=== PATIENT | male | born 1945 | race Caucasian/White ===

== ENCOUNTER 2017-05-24 12:46 | Inpatient (IN) | payer MEDICARE, OTHER ==
[~2017-05-24] VITALS: Ht 162.6 cm; Wt 61.2 kg
[~2017-05-24 12:46] MED LIST: AMLO10TA80 PO; ASPI-864 PO; SEVE800T8 PO; SITA50TA3 PO
[2017-05-24] MEDS ORDERED: SODIUM CHLORIDE 0.9% 1,000 ML IV ONE (16:15)
[2017-05-24] MEDS ORDERED: MORPHINE SULFATE 4 MG/ML CPJ (NOT FOR IM USE) IV PRN ×2 (16:30→20:30)
[2017-05-24] MEDS ORDERED: ONDANSETRON 4MG ODT PO PRN (16:30)
[2017-05-24 16:39] LABS: HEMATOCRIT. 22.8 % (42.0-52.0); HEMOGLOBIN. 7.9 g/dL (14.0-18.0); MEAN CORPUSCULAR HEMOGLOBIN 31.6 pg (28.0-32.0); PLATELET 159 x1000/uL (130-400); RED CELL DISTRIBUTION WIDTH 15.1 % (11.6-14.6)
[2017-05-24 16:43] LABS: PROTHROMBIN TIME 10.9 sec (9.4-11.6)
[2017-05-24 16:50] LABS: CARBON DIOXIDE 26 mEq/L (21-32); CHLORIDE 99 mEq/L (98-107)
[2017-05-24 16:59] LABS: PLATELET ESTIMATE NORMAL
[2017-05-24 20:00] VITALS: BP 169/73
[2017-05-24 21:30] VITALS: BP 169/72
[2017-05-24] MEDS ORDERED: DEXTROSE 50% WATER 50ML SYRINGE IV PRN (23:00)
[2017-05-24] MEDS ORDERED: CLONIDINE 0.1MG TABLET PO PRN (23:00)
[2017-05-24] MEDS ORDERED: ONDANSETRON HCL 4MG/2ML VIAL IV PRN (23:00)
[2017-05-24] MEDS ORDERED: HYDROCODONE/ACETAMINOPHEN 5/325MG TABLET PO PRN (23:12)
[2017-05-24] MEDS: MORPHINE SULFATE 4 MG/ML CPJ (NOT FOR IM USE) IV PRN (23:41)
[2017-05-25] VITALS (9 sets, daily range): BP systolic 130–171; BP diastolic 64–89
[2017-05-25 06:32] LABS: PROTHROMBIN TIME 10.9 sec (9.4-11.6)
[2017-05-25] MEDS: BLOOD SUGAR DIAGNOSTIC STRIP TEST SCH ×4 (07:20→21:00)
[2017-05-25 07:48] LABS: BASOPHILS % 0.4 % (0.0-2.0); EOSINOPHILS % 1.4 % (0.0-5.0); HEMATOCRIT. 22.2 % (42.0-52.0); HEMOGLOBIN. 7.6 g/dL (14.0-18.0); LYMPHOCYTES % 14.4 % (20.0-50.0); MEAN CORPUSCULAR HEMOGLOBIN 31.4 pg (28.0-32.0); MEAN CORPUSCULAR VOLUME 91.5 fL (80.0-94.0); MEAN PLATELET VOLUME 8.8 fl (7.4-10.4); MONOCYTES % 9.2 % (2.0-8.0); NEUTROPHILS % 74.6 % (40.0-76.0); PLATELET 164 x1000/uL (130-400); RED BLOOD CELL COUNT 2.43 mill/uL (4.7-6.1); RED CELL DISTRIBUTION WIDTH 15.2 % (11.6-14.6)
[2017-05-25] MEDS: INSULIN LISPRO 100 UNITS/ML SUBCUT SCH ×4 (07:50→21:00)
[2017-05-25] MEDS: AMLODIPINE 10MG TABLET PO SCH (09:00)
[2017-05-25] MEDS: FOLIC ACID/VITAMIN B COMP W-C TABLET PO SCH (09:00)
[2017-05-25 09:13] LABS: CARBON DIOXIDE 26 mEq/L (21-32); CHLORIDE 101 mEq/L (98-107); HDL CHOLESTEROL 50 mg/dL (40-59); LDL CHOLESTEROL 60 mg/dL (5-100)
[2017-05-25] MEDS: LISINOPRIL 10MG TABLET PO SCH (09:15)
[2017-05-25] MEDS: SEVELAMER CARBONATE 800 MG TABLET PO SCH ×2 (14:16→17:30)
[2017-05-25] MEDS: ATORVASTATIN CALCIUM 20MG TABLET PO SCH (22:30)
[2017-05-26] VITALS: BP 149/67
[2017-05-26 06:19] LABS: BASOPHILS % 0.2 % (0.0-2.0); EOSINOPHILS % 1.1 % (0.0-5.0); HEMATOCRIT. 24.8 % (42.0-52.0); HEMOGLOBIN. 8.5 g/dL (14.0-18.0); LYMPHOCYTES % 7.5 % (20.0-50.0); MEAN CORPUSCULAR HEMOGLOBIN 30.5 pg (28.0-32.0); MEAN CORPUSCULAR VOLUME 89.2 fL (80.0-94.0); MEAN PLATELET VOLUME 8.4 fl (7.4-10.4); MONOCYTES % 7.8 % (2.0-8.0); NEUTROPHILS % 83.4 % (40.0-76.0); PLATELET 167 x1000/uL (130-400); RED BLOOD CELL COUNT 2.77 mill/uL (4.7-6.1); RED CELL DISTRIBUTION WIDTH 16.1 % (11.6-14.6)
[2017-05-26] MEDS: LEVOTHYROXINE SODIUM 50MCG TABLET PO SCH (06:53)
[2017-05-26] MEDS: BLOOD SUGAR DIAGNOSTIC STRIP TEST SCH ×4 (06:53→21:00)
[2017-05-26 07:08] LABS: PHOSPHORUS 3.2 mg/dL (2.5-4.9)
[2017-05-26] MEDS: INSULIN LISPRO 100 UNITS/ML SUBCUT SCH ×4 (07:50→21:00)
[2017-05-26 08:00] VITALS: BP 170/78
[2017-05-26] MEDS ORDERED: SODIUM POLYSTYRENE SULFONATE 15 G/60 ML BOT PO NR (08:30)
[2017-05-26] MEDS: FOLIC ACID/VITAMIN B COMP W-C TABLET PO SCH (09:48)
[2017-05-26] MEDS: AMLODIPINE 10MG TABLET PO SCH (09:49)
[2017-05-26] MEDS: CARVEDILOL 3.125 MG TABLET PO SCH ×2 (09:49→20:46)
[2017-05-26] MEDS: LISINOPRIL 10MG TABLET PO SCH (09:50)
[2017-05-26 11:44] LABS: T4 FREE 1.28 ng/dL (0.76-1.46)
[2017-05-26] MEDS: ENOXAPARIN 30MG/0.3ML SYR SUBCUT SCH (11:46)
[2017-05-26 12:00] VITALS: BP 164/79
[2017-05-26 16:00] VITALS: BP 147/65
[2017-05-26 16:26] LABS: CREATINE KINASE MB FRACTION 1.6 ng/mL (0.5-3.6)
[2017-05-26 16:38] LABS: TROPONIN I 0.61 ng/mL (0.00-0.04)
[2017-05-26 20:00] VITALS: BP 139/69
[2017-05-26] MEDS: ATORVASTATIN CALCIUM 20MG TABLET PO SCH (20:45)
[2017-05-26 23:53] LABS: CREATINE KINASE MB FRACTION 1.3 ng/mL (0.5-3.6)
[2017-05-27] VITALS: BP 139/71
[2017-05-27 00:45] LABS: TROPONIN I 0.66 ng/mL (0.00-0.04)
[2017-05-27 04:00] VITALS: BP 142/73
[2017-05-27 06:05] LABS: BASOPHILS % 0.3 % (0.0-2.0); EOSINOPHILS % 3.7 % (0.0-5.0); HEMATOCRIT. 23.9 % (42.0-52.0); HEMOGLOBIN. 8.3 g/dL (14.0-18.0); LYMPHOCYTES % 8.7 % (20.0-50.0); MEAN CORPUSCULAR HEMOGLOBIN 31.2 pg (28.0-32.0); MEAN CORPUSCULAR VOLUME 89.5 fL (80.0-94.0); MEAN PLATELET VOLUME 8.5 fl (7.4-10.4); NEUTROPHILS % 80.3 % (40.0-76.0); PLATELET 190 x1000/uL (130-400); RED BLOOD CELL COUNT 2.67 mill/uL (4.7-6.1); RED CELL DISTRIBUTION WIDTH 15.4 % (11.6-14.6)
[2017-05-27] MEDS ORDERED: BACITRACIN ZINC 15GM TUBE TOP ONE (06:24)
[2017-05-27] MEDS ORDERED: VANCOMYCIN HCL 500 MG/VIAL ONE (06:24)
[2017-05-27] MEDS ORDERED: NORMAL SALINE 0.9% 10 ML SYR ONE (06:24)
[2017-05-27] MEDS ORDERED: BACITRACIN 50,000 UNITS/VIAL ONE (06:25)
[2017-05-27] MEDS: LEVOTHYROXINE SODIUM 50MCG TABLET PO SCH (06:33)
[2017-05-27] MEDS: BLOOD SUGAR DIAGNOSTIC STRIP TEST SCH ×4 (06:33→21:56)
[2017-05-27 06:55] LABS: CREATINE KINASE MB FRACTION 1.2 ng/mL (0.5-3.6); PHOSPHORUS 3.7 mg/dL (2.5-4.9)
[2017-05-27] MEDS ORDERED: MIDAZOLAM HCL 2 MG/2 ML VIAL ONE (07:06)
[2017-05-27] MEDS ORDERED: FENTANYL CITRATE/PF 50MCG/ML 2ML VIAL ONE (07:06)
[2017-05-27 07:13] LABS: TROPONIN I 0.62 ng/mL (0.00-0.04)
[2017-05-27] MEDS ORDERED: MEPERIDINE HCL/PF 25MG/ML CPJ IV PRN (07:30)
[2017-05-27] MEDS ORDERED: ONDANSETRON HCL 4MG/2ML VIAL IV PRN (07:30)
[2017-05-27] MEDS ORDERED: LABETALOL HCL 5MG/ML VIAL 20ML IV PRN (07:30)
[2017-05-27] MEDS ORDERED: HYDROMORPHONE HCL/PF 2MG/ML CPJ IV PRN (07:30)
[2017-05-27] MEDS: INSULIN LISPRO 100 UNITS/ML SUBCUT SCH ×4 (07:50→22:06)
[2017-05-27] MEDS ORDERED: LIDOCAINE HCL 1% 20ML VIAL (Pyxis) INJ ONE (07:54)
[2017-05-27] MEDS ORDERED: DEXAMETHASONE 4MG/ML 1ML VIAL ONE (07:54)
[2017-05-27] MEDS ORDERED: PROPOFOL 200MG/20ML VIAL IV ONE (07:54)
[2017-05-27] MEDS ORDERED: EPHEDRINE SULFATE 50MG/ML VIAL ONE (07:54)
[2017-05-27] MEDS ORDERED: SODIUM CHLORIDE 0.9% 10ML VIAL ONE (07:54)
[2017-05-27] MEDS ORDERED: NEOSTIGMINE METHYLSULFATE 1MG/ML 10 ML VIAL ONE ×2 (07:54→07:55)
[2017-05-27] MEDS ORDERED: CEFAZOLIN SODIUM 1000MG/VIAL ONE (07:54)
[2017-05-27] MEDS ORDERED: GLYCOPYRROLATE 0.2 MG/ML 2ML VIAL ONE (07:55)
[2017-05-27] MEDS ORDERED: ONDANSETRON HCL 4MG/2ML VIAL ONE (07:55)
[2017-05-27] MEDS: AMLODIPINE 10MG TABLET PO SCH (08:00)
[2017-05-27] MEDS: FOLIC ACID/VITAMIN B COMP W-C TABLET PO SCH (08:00)
[2017-05-27] MEDS ORDERED: CEFAZOLIN 1000MG PREMIX 50 ML IV SCH (08:00)
[2017-05-27] MEDS: CARVEDILOL 3.125 MG TABLET PO SCH ×2 (08:00→20:44)
[2017-05-27] MEDS: ENOXAPARIN 30MG/0.3ML SYR SUBCUT SCH (08:00)
[2017-05-27] MEDS: LISINOPRIL 10MG TABLET PO SCH (08:00)
[2017-05-27 10:00] VITALS: BP 151/67
[2017-05-27 12:00] VITALS: BP 145/64
[2017-05-27 16:00] VITALS: BP 140/67
[2017-05-27 20:00] VITALS: BP 143/59
[2017-05-27] MEDS: ATORVASTATIN CALCIUM 20MG TABLET PO SCH (20:44)
[2017-05-27] MEDS ORDERED: EPOETIN ALFA 10000UNITS/ML VIAL SUBCUT SCH (21:00)
[2017-05-28] VITALS: BP 124/56
[2017-05-28 04:00] VITALS: BP 148/81
[2017-05-28] MEDS: MORPHINE SULFATE 4 MG/ML CPJ (NOT FOR IM USE) IV PRN ×2 (04:31→11:24)
[2017-05-28 06:05] LABS: HEMATOCRIT. 22.7 % (42.0-52.0); HEMOGLOBIN. 7.7 g/dL (14.0-18.0); MEAN CORPUSCULAR HEMOGLOBIN 30.1 pg (28.0-32.0); MEAN CORPUSCULAR VOLUME 88.7 fL (80.0-94.0); MEAN PLATELET VOLUME 8.7 fl (7.4-10.4); PLATELET 216 x1000/uL (130-400); RED BLOOD CELL COUNT 2.56 mill/uL (4.7-6.1); RED CELL DISTRIBUTION WIDTH 15.5 % (11.6-14.6)
[2017-05-28] MEDS: LEVOTHYROXINE SODIUM 50MCG TABLET PO SCH (06:20)
[2017-05-28] MEDS: BLOOD SUGAR DIAGNOSTIC STRIP TEST SCH ×4 (06:27→20:49)
[2017-05-28] MEDS: INSULIN LISPRO 100 UNITS/ML SUBCUT SCH ×4 (07:44→20:51)
[2017-05-28 07:49] LABS: PHOSPHORUS 4.1 mg/dL (2.5-4.9)
[2017-05-28 08:00] VITALS: BP 138/75
[2017-05-28] MEDS ORDERED: CEFAZOLIN 1000MG PREMIX 50 ML IV SCH (08:00)
[2017-05-28] MEDS ORDERED: APIXABAN 5 MG TABLET PO SCH (09:00)
[2017-05-28] MEDS: FOLIC ACID/VITAMIN B COMP W-C TABLET PO SCH (09:13)
[2017-05-28] MEDS: LISINOPRIL 10MG TABLET PO SCH (09:15)
[2017-05-28] MEDS: AMLODIPINE 10MG TABLET PO SCH (09:15)
[2017-05-28] MEDS: CARVEDILOL 3.125 MG TABLET PO SCH ×2 (09:16→20:49)
[2017-05-28] MEDS ORDERED: LINAGLIPTIN 5MG TABLET PO SCH (11:00)
[2017-05-28 12:00] VITALS: BP 144/65
[2017-05-28 16:00] VITALS: BP 140/63
[2017-05-28] MEDS ORDERED: APIXABAN 2.5 MG TABLET PO SCH (17:50)
[2017-05-28 19:51] VITALS: BP 146/69
[2017-05-28 20:38] LABS: PLATELET ESTIMATE NORMAL
[2017-05-28] MEDS: ATORVASTATIN CALCIUM 20MG TABLET PO SCH (20:48)
== END 2017-05-28 21:35 | DRG 480 ==
LOC: ER 14:01 → 6EST 16:30 → ENRESERV 19:02
PROVIDERS: ADMIT Internal Medicine; ATTEND Internal Medicine
PROC: 5A1D70Z Performance of Urinary Filtration, Intermittent, Less than 6 Hours Per Day (ICD-10-PCS; 2017-05-25)
PROC: 5A1D70Z Performance of Urinary Filtration, Intermittent, Less than 6 Hours Per Day (ICD-10-PCS; 2017-05-27)
PROC: 0QS636Z Reposition Right Upper Femur with Intramedullary Internal Fixation Device, Percutaneous Approach (ICD-10-PCS; principal; 2017-05-27 07:00)
DX: S72.141A Displaced intertrochanteric fracture of right femur, initial encounter for closed fracture (principal); N18.6 End stage renal disease; I13.2 Hypertensive heart and chronic kidney disease with heart failure and with stage 5 chronic kidney disease, or end stage renal disease; E11.22 Type 2 diabetes mellitus with diabetic chronic kidney disease; E11.40 Type 2 diabetes mellitus with diabetic neuropathy, unspecified; E83.39 Other disorders of phosphorus metabolism; I42.8 Other cardiomyopathies; E11.319 Type 2 diabetes mellitus with unspecified diabetic retinopathy without macular edema; I50.40 Unspecified combined systolic (congestive) and diastolic (congestive) heart failure; I25.10 Atherosclerotic heart disease of native coronary artery without angina pectoris; D63.8 Anemia in other chronic diseases classified elsewhere; E78.5 Hyperlipidemia, unspecified; E87.5 Hyperkalemia; H54.7 Unspecified visual loss; W01.0XXA Fall on same level from slipping, tripping and stumbling without subsequent striking against object, initial encounter; Z79.4 Long term (current) use of insulin; Z86.73 Personal history of transient ischemic attack (TIA), and cerebral infarction without residual deficits; Z87.891 Personal history of nicotine dependence; Z99.2 Dependence on renal dialysis; Y93.89 Activity, other specified; Y92.89 Other specified places as the place of occurrence of the external cause; Y99.8 Other external cause status
CPT/HCPCS: 36415; 71010; 73502; 73503; 80048; 80053; 80061; 82550; 82553; 82962; 83036; 83735; 83880; 84100; 84439; 84443; 84484; 85025; 85379; 85610; 86850; 86900; 86920; 93005; 93306; 93970; 96361; 96374; 97110; 97163; 97530; 99285; A4216; C1893; J0171; J0690; J0885; J1100; J1650; J1815; J2250; J2270; J2405; J2704; J2710; J3010; J3370; J3490; J7030; J7050; P9021; Q0162

== ENCOUNTER 2018-06-30 14:07 | Inpatient (IN) | payer MEDICARE ==
[~2018-06-30] VITALS: Ht 170.2 cm; Wt 44.5 kg
[2018-06-30 18:12] LABS: BASOPHILS % 0.5 % (0.0-2.0); EOSINOPHILS % 1.6 % (0.0-5.0); HEMATOCRIT. 26.9 % (42.0-52.0); HEMOGLOBIN. 9.1 g/dL (14.0-18.0); LYMPHOCYTES % 14.4 % (20.0-50.0); MEAN CORPUSCULAR HEMOGLOBIN 33.3 pg (28.0-32.0); MEAN CORPUSCULAR VOLUME 98.4 fL (80.0-94.0); MONOCYTES % 8.8 % (2.0-8.0); NEUTROPHILS % 74.7 % (40.0-76.0); PLATELET 185 x1000/uL (130-400); RED BLOOD CELL COUNT 2.74 mill/uL (4.7-6.1); RED CELL DISTRIBUTION WIDTH 14.8 % (11.6-14.6)
[2018-06-30 18:19] LABS: CHLORIDE 100 mEq/L (98-107)
[2018-06-30 18:23] LABS: PROTHROMBIN TIME 9.9 sec (9.1-11.1)
[2018-06-30 18:24] LABS: ETHANOL BLOOD < 10 mg/dL
[2018-06-30 21:15] VITALS: BP 162/68
[2018-06-30] MEDS: AMLODIPINE 10MG TABLET PO SCH (22:24)
[2018-07-01] VITALS: BP 130/59
[2018-07-01 04:00] VITALS: BP 106/47
[2018-07-01 07:28] LABS: HEMATOCRIT. 23.1 % (42.0-52.0); MEAN CORPUSCULAR HEMOGLOBIN 33.8 pg (28.0-32.0); MEAN CORPUSCULAR VOLUME 98.1 fL (80.0-94.0); MEAN PLATELET VOLUME 7.9 fl (7.4-10.4); PLATELET 181 x1000/uL (130-400); RED BLOOD CELL COUNT 2.36 mill/uL (4.7-6.1)
[2018-07-01 08:00] VITALS: BP 143/60
[2018-07-01] MEDS: SEVELAMER CARBONATE 800 MG TABLET PO SCH ×2 (09:02→12:45)
[2018-07-01] MEDS: FOLIC ACID/VITAMIN B COMP W-C TABLET PO SCH (09:02)
[2018-07-01] MEDS ORDERED: ACETAMINOPHEN 325MG TABLET PO PRN (09:45)
[2018-07-01 10:16] LABS: PHOSPHORUS 2.5 mg/dL (2.5-4.9)
[2018-07-01 12:00] VITALS: BP 113/47
[2018-07-01 14:08] LABS: PLATELET ESTIMATE NORMAL
[2018-07-01 16:00] VITALS: BP 143/56
[2018-07-01] MEDS ORDERED: HYDROCODONE/ACETAMINOPHEN 5/325MG TABLET PO PRN (16:00)
[2018-07-01] MEDS ORDERED: ACETAMINOPHEN 650MG/20.3ML UDC PO PRN (16:00)
[2018-07-01] MEDS ORDERED: ACETAMINOPHEN 650MG SUPP PR PRN (16:00)
[2018-07-01] MEDS ORDERED: CLONIDINE 0.1MG TABLET PO PRN (16:00)
[2018-07-01] MEDS ORDERED: DIPHENHYDRAMINE 50MG/ML VIAL IV PRN (16:00)
[2018-07-01] MEDS ORDERED: DOCUSATE SODIUM 100MG CAPSULE PO PRN (16:00)
[2018-07-01] MEDS ORDERED: ONDANSETRON HCL 4MG/2ML INJ IV PRN (16:00)
[2018-07-01] MEDS ORDERED: DEXTROSE 50% WATER 50ML SYRINGE IV PRN (16:15)
[2018-07-01 20:00] VITALS: BP_SYST 109; BP_SYST 138; BP_DIAS 42; BP_DIAS 54
[2018-07-01] MEDS: AMLODIPINE 10MG TABLET PO SCH (21:00)
[2018-07-01] MEDS: BLOOD SUGAR DIAGNOSTIC STRIP TEST SCH (21:45)
[2018-07-01] MEDS: INSULIN LISPRO 100 UNITS/ML SUBCUT SCH (21:45)
[2018-07-02] VITALS: BP 145/48
[2018-07-02 04:00] VITALS: BP 138/45
[2018-07-02] MEDS: BLOOD SUGAR DIAGNOSTIC STRIP TEST SCH ×2 (07:37→12:57)
[2018-07-02] MEDS: INSULIN LISPRO 100 UNITS/ML SUBCUT SCH ×2 (07:37→12:57)
[2018-07-02 08:00] VITALS: BP 244/86
[2018-07-02] MEDS: FOLIC ACID/VITAMIN B COMP W-C TABLET PO SCH (08:48)
[2018-07-02 09:13] LABS: BASOPHILS % 0.4 % (0.0-2.0); EOSINOPHILS % 2.4 % (0.0-5.0); HEMATOCRIT. 27.9 % (42.0-52.0); HEMOGLOBIN. 9.6 g/dL (14.0-18.0); LYMPHOCYTES % 24.2 % (20.0-50.0); MEAN CORPUSCULAR HEMOGLOBIN 33.6 pg (28.0-32.0); MEAN CORPUSCULAR VOLUME 97.5 fL (80.0-94.0); MONOCYTES % 8.8 % (2.0-8.0); NEUTROPHILS % 64.2 % (40.0-76.0); PLATELET 227 x1000/uL (130-400); RED BLOOD CELL COUNT 2.87 mill/uL (4.7-6.1); RED CELL DISTRIBUTION WIDTH 14.5 % (11.6-14.6)
[2018-07-02 10:21] LABS: PHOSPHORUS 3.3 mg/dL (2.5-4.9)
[2018-07-02 12:00] VITALS: BP 106/63
[2018-07-02 16:00] VITALS: BP 101/79
[2018-07-02 20:00] VITALS: BP 126/44
[2018-07-02] MEDS ORDERED: AMLODIPINE 5MG TABLET PO SCH (21:00)
[2018-07-02] MEDS ORDERED: EPOETIN ALFA 4000UNITS/ML VIAL SUBCUT SCH (21:00)
[2018-07-03] VITALS: BP 107/30
[2018-07-03 08:00] VITALS: BP_SYST 113
[2018-07-03] MEDS: FOLIC ACID/VITAMIN B COMP W-C TABLET PO SCH (09:34)
[2018-07-03 13:54] VITALS: BP 140/52
[2018-07-03 14:00] VITALS: BP 140/52
[2018-07-03] MEDS ORDERED: AMLODIPINE 2.5MG TABLET PO SCH (21:00)
== END 2018-07-03 15:14 | disposition home or self-care (01) | DRG 535 ==
LOC: ER 14:26 → 7WST 17:01 → EDBEDREQ 17:09 → EDBEDREQTM 17:09 → ENRESERV 20:08 → 7WST 21:47
PROVIDERS: ADMIT Internal Medicine; ATTEND Internal Medicine
PROC: 5A1D70Z Performance of Urinary Filtration, Intermittent, Less than 6 Hours Per Day (ICD-10-PCS; principal; 2018-07-01)
DX: S32.591A Other specified fracture of right pubis, initial encounter for closed fracture (principal); N18.6 End stage renal disease; I50.43 Acute on chronic combined systolic (congestive) and diastolic (congestive) heart failure; I13.2 Hypertensive heart and chronic kidney disease with heart failure and with stage 5 chronic kidney disease, or end stage renal disease; R10.30 Lower abdominal pain, unspecified; R26.2 Difficulty in walking, not elsewhere classified; E11.22 Type 2 diabetes mellitus with diabetic chronic kidney disease; E11.319 Type 2 diabetes mellitus with unspecified diabetic retinopathy without macular edema; E11.40 Type 2 diabetes mellitus with diabetic neuropathy, unspecified; D64.9 Anemia, unspecified; E83.39 Other disorders of phosphorus metabolism; R26.89 Other abnormalities of gait and mobility; H54.8 Legal blindness, as defined in USA; Z96.649 Presence of unspecified artificial hip joint; W18.30XA Fall on same level, unspecified, initial encounter; Y93.89 Activity, other specified; Y99.8 Other external cause status; Z82.49 Family history of ischemic heart disease and other diseases of the circulatory system; Z83.3 Family history of diabetes mellitus; Z86.73 Personal history of transient ischemic attack (TIA), and cerebral infarction without residual deficits; Z87.81 Personal history of (healed) traumatic fracture; Z99.2 Dependence on renal dialysis; Y92.009 Unspecified place in unspecified non-institutional (private) residence as the place of occurrence of the external cause; Z79.82 Long term (current) use of aspirin; Z79.899 Other long term (current) drug therapy
CPT/HCPCS: 36415; 71045; 72192; 73502; 80048; 82962; 83036; 83540; 83550; 83605; 84100; 84145; 84484; 93005; 93306; 93970; 99291; G0482; J0885; J1815

== ENCOUNTER 2018-09-15 06:53 | Inpatient (IN) | payer MEDICARE ==
[~2018-09-15] VITALS: Ht 157.5 cm; Wt 50.9 kg
[2018-09-15] VITALS (46 sets, daily range): BP systolic 87–189; BP diastolic 47–96
[2018-09-15] MEDS ORDERED: SODIUM CHLORIDE 0.9% 1000ML BAG (SEPSIS BOLUS) IV ONE (07:30)
[2018-09-15] MEDS ORDERED: PIPERACILLIN/TAZ 3.375G PREMIX 50 ML IV ONE (07:45)
[2018-09-15] MEDS ORDERED: VANCOMYCIN 1 G PREMIX 200 ML IV ONE (07:45)
[2018-09-15 08:20] LABS: HEMATOCRIT. 44.4 % (42.0-52.0); HEMOGLOBIN. 14.5 g/dL (14.0-18.0); MEAN CORPUSCULAR HEMOGLOBIN 31.5 pg (28.0-32.0); MEAN CORPUSCULAR VOLUME 96.7 fL (80.0-94.0); MEAN PLATELET VOLUME 7.7 fl (7.4-10.4); PLATELET 193 x1000/uL (130-400); RED BLOOD CELL COUNT 4.59 mill/uL (4.7-6.1); RED CELL DISTRIBUTION WIDTH 15.1 % (11.6-14.6)
[2018-09-15 08:25] LABS: CHLORIDE 93 mEq/L (98-107)
[2018-09-15 08:30] LABS: INR 1.1; PROTHROMBIN TIME 10.7 sec (9.1-11.1)
[2018-09-15] MEDS ORDERED: PROPOFOL 10MG/ML 100ML 100 ML IV ONE (08:45)
[2018-09-15] MEDS ORDERED: SUCCINYLCHOLINE CHLORIDE 200MG/10ML IV ONE ×2 (08:45→13:03)
[2018-09-15] MEDS ORDERED: THROMBIN (BOVINE) 5000 UNITS/VIAL TOP ONE (08:58)
[2018-09-15] MEDS ORDERED: GELATIN SPONGE,ABSORBABLE 12-7MM SPONGE ONE (08:58)
[2018-09-15] MEDS ORDERED: LIDOCAINE HCL/EPINEPHRINE 1%-EPI 1:100,000 20 ML VIAL ONE (08:59)
[2018-09-15] MEDS ORDERED: BACITRACIN 50,000 UNITS/VIAL ONE (08:59)
[2018-09-15 09:04] LABS: PLATELET ESTIMATE NORMAL
[2018-09-15] MEDS ORDERED: SODIUM CHLORIDE 0.9% 10ML VIAL ONE (09:56)
[2018-09-15] MEDS ORDERED: VECURONIUM BROMIDE 10 MG/VIAL IV ONE ×2 (09:56→10:31)
[2018-09-15] MEDS ORDERED: PROPOFOL 200MG/20ML VIAL IV ONE (10:31)
[2018-09-15] MEDS ORDERED: LABETALOL HCL 20MG/4ML CARPUJECT IV PRN (10:45)
[2018-09-15] MEDS ORDERED: MEPERIDINE HCL/PF 25MG/ML CPJ IV PRN (10:45)
[2018-09-15] MEDS ORDERED: ONDANSETRON HCL 4MG/2ML INJ IV PRN (10:45)
[2018-09-15] MEDS ORDERED: HYDROMORPHONE HCL/PF 2MG/ML CPJ IV PRN (10:45)
[2018-09-15] MEDS ORDERED: BACITRACIN 15GM TUBE TOP ONE (10:56)
[2018-09-15] MEDS ORDERED: MORPHINE SULFATE 4 MG/ML CPJ (NOT FOR IM USE) IV PRN (11:15)
[2018-09-15] MEDS ORDERED: FENTANYL CITRATE/PF 50MCG/ML 2ML VIAL ONE (11:28)
[2018-09-15] MEDS: NICARDIPINE 100 MG in SODIUM CHLORIDE 0.9% 60 ML IV PRN (12:06)
[2018-09-15] MEDS: DEXT 5%/LACTATED RINGERS 1,000 ML IV SCH (12:07)
[2018-09-15] MEDS ORDERED: PROPOFOL 10MG/ML 100ML 100 ML IV PRN (12:30)
[2018-09-15 12:47] LABS: BG BASE EXCESS 4.1 mmol/L (-2.0-2.0); BG CARBOXYHEMOGLOBIN 0.6 % (0.5-1.5); BG DEOXYHEMOGLOBIN 0.4 % (0.0-5.0); BG FRACTION INSPIRED OXYGEN 100; BG METHEMOGLOBIN 0.1 % (0.0-1.5); BG OXYGEN SATURATION 99.6 % (92.0-98.5); BG OXYHEMOGLOBIN 98.9 % (94.0-97.0); BG PH 7.542 (7.350-7.450); BG PO2 570.4 mmHg (75.0-100.0); BG SAMPLE SITE RIGHT BRACHIAL; BG TIDAL VOLUME(mL) 500 mL; BG TOTAL HEMOGLOBIN 13.4 g/dL (12.0-18.0); BG VENT MODE VENT - A/C; BG VENT RATE 10 set
[2018-09-15] MEDS ORDERED: ETOMIDATE 2MG/ML 10ML VIAL IV ONE (13:03)
[2018-09-15] MEDS: LEVETIRACETAM 500 MG in SODIUM CHLORIDE 0.9% 100 ML IV SCH ×2 (13:42→21:13)
[2018-09-15] MEDS ORDERED: CEFAZOLIN SODIUM 1000MG/VIAL IV SCH (14:00)
[2018-09-15] MEDS ORDERED: DEXTROSE 50% WATER 50ML SYRINGE IV PRN (14:00)
[2018-09-15] MEDS: PANTOPRAZOLE SODIUM 40 MG/VIAL IV SCH (14:15)
[2018-09-15] MEDS: CEFAZOLIN 1000MG PREMIX 50 ML IV SCH (14:15)
[2018-09-15 15:31] LABS: HEMATOCRIT 37.7 % (42.0-52.0); HEMOGLOBIN 12.5 g/dL (14.0-18.0); MEAN CORPUSCULAR HEMOGLOBIN 31.9 pg (28.0-32.0); MEAN CORPUSCULAR VOLUME 96.2 fL (80.0-94.0); PLATELET 145 x1000/uL (130-400); RED BLOOD CELL COUNT 3.92 mill/uL (4.7-6.1); RED CELL DISTRIBUTION WIDTH 15.1 % (11.6-14.6)
[2018-09-15 15:37] LABS: CHLORIDE 99 mEq/L (98-107)
[2018-09-15 15:46] LABS: LDL CHOLESTEROL 45 mg/dL (5-100)
[2018-09-15 15:47] LABS: T4 FREE 1.34 ng/dL (0.76-1.46)
[2018-09-15 15:48] LABS: HDL CHOLESTEROL 60 mg/dL (40-59)
[2018-09-15] MEDS ORDERED: BLOOD SUGAR DIAGNOSTIC STRIP TEST SCH ×2 (16:30)
[2018-09-15] MEDS ORDERED: INSULIN LISPRO 100 UNITS/ML SUBCUT SCH (17:00)
[2018-09-16] VITALS (95 sets, daily range): BP systolic 109–157; BP diastolic 40–77
[2018-09-16] MEDS: BLOOD SUGAR DIAGNOSTIC STRIP TEST SCH ×5 (00:58→23:26)
[2018-09-16] MEDS: NICARDIPINE 100 MG in SODIUM CHLORIDE 0.9% 60 ML IV PRN (04:10)
[2018-09-16] MEDS: DEXT 5%/LACTATED RINGERS 1,000 ML IV SCH ×2 (04:11→21:11)
[2018-09-16] MEDS: INSULIN LISPRO 100 UNITS/ML SUBCUT SCH ×5 (05:17→23:41)
[2018-09-16 05:57] LABS: PHOSPHORUS 4.7 mg/dL (2.5-4.9)
[2018-09-16 06:08] LABS: HEMATOCRIT. 36.7 % (42.0-52.0); HEMOGLOBIN. 12.1 g/dL (14.0-18.0); MEAN CORPUSCULAR HEMOGLOBIN 31.8 pg (28.0-32.0); MEAN CORPUSCULAR VOLUME 96.7 fL (80.0-94.0); MEAN PLATELET VOLUME 7.9 fl (7.4-10.4); PLATELET 158 x1000/uL (130-400); RED CELL DISTRIBUTION WIDTH 15.3 % (11.6-14.6)
[2018-09-16 06:16] LABS: CLARITY URINE CLOUDY (CLEAR); COLOR URINE YELLOW (YELLOW); KETONES URINE TRACE (NEGATIVE); LEUKOCYTE ESTERASE URINE NEGATIVE (NEGATIVE); NITRITE URINE NEGATIVE (NEGATIVE); OCCULT BLOOD URINE 1+ (NEGATIVE); PH URINE >=9.0 (4.5-8.0); PROTEIN URINE 3+ (NEGATIVE); SPECIFIC GRAVITY URINE 1.012 (1.005-1.030); UROBILINOGEN URINE 0.2 E.U./dL (0.2-1.0)
[2018-09-16 07:01] LABS: *AMPHETAMINES SCREEN URINE NEGATIVE (NEGATIVE)
[2018-09-16 07:02] LABS: *BARBITURATES SCREEN URINE NEGATIVE (NEGATIVE); *BENZODIAZEPINES SCREEN URINE NEGATIVE (NEGATIVE); *COCAINE SCREEN URINE NEGATIVE (NEGATIVE); METHADONE URINE SCREEN NEGATIVE (NEGATIVE); OPIATES URINE SCREEN NEGATIVE (NEGATIVE)
[2018-09-16 07:03] LABS: CANNABINOID URINE SCREEN NEGATIVE (NEGATIVE); PHENCYCLIDINE URINE SCREEN NEGATIVE (NEGATIVE)
[2018-09-16] MEDS: PANTOPRAZOLE SODIUM 40 MG/VIAL IV SCH (09:30)
[2018-09-16] MEDS: LEVETIRACETAM 500 MG in SODIUM CHLORIDE 0.9% 100 ML IV SCH ×2 (09:30→21:11)
[2018-09-16 10:10] LABS: PLATELET ESTIMATE NORMAL
[2018-09-16 14:24] LABS: BG BASE EXCESS 3.3 mmol/L (-2.0-2.0); BG DEOXYHEMOGLOBIN 1.1 % (0.0-5.0); BG FRACTION INSPIRED OXYGEN 40; BG HCO3 ACT 25.7 mmol/L (22.0-26.0); BG METHEMOGLOBIN 0.3 % (0.0-1.5); BG OXYGEN SATURATION 98.9 % (92.0-98.5); BG OXYHEMOGLOBIN 97.6 % (94.0-97.0); BG PCO2 31.9 mmHg (35.0-45.0); BG PH 7.524 (7.350-7.450); BG PO2 156.4 mmHg (75.0-100.0); BG SAMPLE SITE RIGHT BRACHIAL; BG TIDAL VOLUME(mL) 450 mL; BG TOTAL HEMOGLOBIN 11.9 g/dL (12.0-18.0); BG VENT MODE VENT - A/C; BG VENT RATE 10 set
[2018-09-16] MEDS ORDERED: LEVOTHYROXINE SODIUM 50MCG TABLET PO NR (14:45)
[2018-09-16] MEDS: CEFAZOLIN 1000MG PREMIX 50 ML IV SCH (14:57)
[2018-09-16] MEDS ORDERED: VANCOMYCIN 750 MG PREMIX 150 ML IV NR (15:00)
[2018-09-17] VITALS (104 sets, daily range): BP systolic 106–145; BP diastolic 24–77
[2018-09-17 05:32] LABS: BASOPHILS % 0.3 % (0.0-2.0); EOSINOPHILS % 0.7 % (0.0-5.0); HEMATOCRIT. 35.5 % (42.0-52.0); HEMOGLOBIN. 11.8 g/dL (14.0-18.0); LYMPHOCYTES % 10.8 % (20.0-50.0); MEAN CORPUSCULAR VOLUME 96.2 fL (80.0-94.0); MEAN PLATELET VOLUME 7.7 fl (7.4-10.4); MONOCYTES % 6.5 % (2.0-8.0); NEUTROPHILS % 81.7 % (40.0-76.0); PLATELET 169 x1000/uL (130-400); RED BLOOD CELL COUNT 3.69 mill/uL (4.7-6.1); RED CELL DISTRIBUTION WIDTH 15.1 % (11.6-14.6)
[2018-09-17] MEDS: BLOOD SUGAR DIAGNOSTIC STRIP TEST SCH ×4 (05:59→23:36)
[2018-09-17 06:00] LABS: PHOSPHORUS 4.6 mg/dL (2.5-4.9)
[2018-09-17] MEDS: INSULIN LISPRO 100 UNITS/ML SUBCUT SCH ×4 (06:00→23:35)
[2018-09-17] MEDS: LEVOTHYROXINE SODIUM 50MCG TABLET PO SCH (06:06)
[2018-09-17 07:18] LABS: BG DEOXYHEMOGLOBIN 1.1 % (0.0-5.0); BG HCO3 ACT 24.9 mmol/L (22.0-26.0); BG METHEMOGLOBIN 0.3 % (0.0-1.5); BG OXYGEN SATURATION 98.9 % (92.0-98.5); BG OXYHEMOGLOBIN 97.6 % (94.0-97.0); BG PH 7.495 (7.350-7.450); BG PO2 148.7 mmHg (75.0-100.0); BG SAMPLE SITE RIGHT BRACHIAL; BG TIDAL VOLUME(mL) 450 mL; BG TOTAL HEMOGLOBIN 12.1 g/dL (12.0-18.0); BG VENT MODE VENT - A/C; BG VENT RATE 10 set
[2018-09-17] MEDS: LEVETIRACETAM 500 MG in SODIUM CHLORIDE 0.9% 100 ML IV SCH ×2 (08:34→20:52)
[2018-09-17] MEDS: PANTOPRAZOLE SODIUM 40 MG/VIAL IV SCH (08:34)
[2018-09-17] MEDS: NICARDIPINE 100 MG in SODIUM CHLORIDE 0.9% 60 ML IV PRN (13:00)
[2018-09-17] MEDS: DEXT 5%/LACTATED RINGERS 1,000 ML IV SCH (18:00)
[2018-09-18] VITALS (93 sets, daily range): BP systolic 101–141; BP diastolic 32–84
[2018-09-18] MEDS: NICARDIPINE 100 MG in SODIUM CHLORIDE 0.9% 60 ML IV PRN ×2 (00:01→15:09)
[2018-09-18 05:32] LABS: BASOPHILS % 0.3 % (0.0-2.0); EOSINOPHILS % 0.4 % (0.0-5.0); HEMATOCRIT. 36.9 % (42.0-52.0); HEMOGLOBIN. 12.2 g/dL (14.0-18.0); LYMPHOCYTES % 10.3 % (20.0-50.0); MEAN CORPUSCULAR HEMOGLOBIN 31.7 pg (28.0-32.0); MEAN PLATELET VOLUME 7.5 fl (7.4-10.4); MONOCYTES % 6.5 % (2.0-8.0); NEUTROPHILS % 82.5 % (40.0-76.0); PLATELET 199 x1000/uL (130-400); RED BLOOD CELL COUNT 3.85 mill/uL (4.7-6.1)
[2018-09-18] MEDS: INSULIN LISPRO 100 UNITS/ML SUBCUT SCH ×3 (06:00→17:31)
[2018-09-18] MEDS: DEXT 5%/LACTATED RINGERS 1,000 ML IV SCH (06:12)
[2018-09-18] MEDS: LEVOTHYROXINE SODIUM 50MCG TABLET PO SCH (06:12)
[2018-09-18] MEDS: BLOOD SUGAR DIAGNOSTIC STRIP TEST SCH ×3 (06:12→17:31)
[2018-09-18 06:21] LABS: PHOSPHORUS 4.7 mg/dL (2.5-4.9)
[2018-09-18] MEDS: LEVETIRACETAM 500 MG in SODIUM CHLORIDE 0.9% 100 ML IV SCH ×2 (08:49→21:05)
[2018-09-18] MEDS: PANTOPRAZOLE SODIUM 40 MG/VIAL IV SCH (08:49)
[2018-09-19] VITALS (96 sets, daily range): BP systolic 112–158; BP diastolic 31–52
[2018-09-19] MEDS: INSULIN LISPRO 100 UNITS/ML SUBCUT SCH ×4 (00:23→17:59)
[2018-09-19] MEDS: BLOOD SUGAR DIAGNOSTIC STRIP TEST SCH ×4 (00:23→18:00)
[2018-09-19 05:53] LABS: BASOPHILS % 0.5 % (0.0-2.0); EOSINOPHILS % 1.3 % (0.0-5.0); HEMATOCRIT. 36.1 % (42.0-52.0); HEMOGLOBIN. 11.9 g/dL (14.0-18.0); LYMPHOCYTES % 13.2 % (20.0-50.0); MEAN CORPUSCULAR HEMOGLOBIN 31.5 pg (28.0-32.0); MEAN CORPUSCULAR VOLUME 95.9 fL (80.0-94.0); MEAN PLATELET VOLUME 7.7 fl (7.4-10.4); MONOCYTES % 7.8 % (2.0-8.0); NEUTROPHILS % 77.2 % (40.0-76.0); PLATELET 208 x1000/uL (130-400); RED BLOOD CELL COUNT 3.77 mill/uL (4.7-6.1); RED CELL DISTRIBUTION WIDTH 15.1 % (11.6-14.6)
[2018-09-19 06:10] LABS: PHOSPHORUS 4.7 mg/dL (2.5-4.9)
[2018-09-19] MEDS: LEVOTHYROXINE SODIUM 50MCG TABLET PO SCH (06:55)
[2018-09-19] MEDS: LEVETIRACETAM 500 MG in SODIUM CHLORIDE 0.9% 100 ML IV SCH ×2 (09:30→21:38)
[2018-09-19] MEDS: PANTOPRAZOLE SODIUM 40 MG/VIAL IV SCH (09:30)
[2018-09-19] MEDS ORDERED: VANCOMYCIN 500 MG PREMIX 100 ML IV SCH (12:30)
[2018-09-19] MEDS: AMLODIPINE 5MG TABLET PO SCH (12:42)
[2018-09-19] MEDS: NICARDIPINE 100 MG in SODIUM CHLORIDE 0.9% 60 ML IV PRN (14:38)
[2018-09-19] MEDS ORDERED: ACETAMINOPHEN 325MG TABLET PO PRN (17:15)
[2018-09-19] MEDS ORDERED: ACETAMINOPHEN 650MG SUPP PR PRN (17:15)
[2018-09-19] MEDS ORDERED: CLONIDINE 0.1MG TABLET PO PRN (17:15)
[2018-09-19] MEDS: CARVEDILOL 3.125 MG TABLET PO SCH (21:38)
[2018-09-20] VITALS (88 sets, daily range): BP systolic 120–166; BP diastolic 32–58
[2018-09-20] MEDS: LEVOTHYROXINE SODIUM 50MCG TABLET PO SCH (05:51)
[2018-09-20 05:55] LABS: BASOPHILS % 0.5 % (0.0-2.0); EOSINOPHILS % 1.8 % (0.0-5.0); HEMATOCRIT. 36.8 % (42.0-52.0); HEMOGLOBIN. 12.2 g/dL (14.0-18.0); LYMPHOCYTES % 10.9 % (20.0-50.0); MEAN CORPUSCULAR HEMOGLOBIN 31.9 pg (28.0-32.0); MEAN CORPUSCULAR VOLUME 96.2 fL (80.0-94.0); MEAN PLATELET VOLUME 8.9 fl (7.4-10.4); MONOCYTES % 7.2 % (2.0-8.0); NEUTROPHILS % 79.6 % (40.0-76.0); PLATELET 240 x1000/uL (130-400); RED BLOOD CELL COUNT 3.83 mill/uL (4.7-6.1); RED CELL DISTRIBUTION WIDTH 15.3 % (11.6-14.6)
[2018-09-20] MEDS: NICARDIPINE 100 MG in SODIUM CHLORIDE 0.9% 60 ML IV PRN (06:06)
[2018-09-20] MEDS: INSULIN LISPRO 100 UNITS/ML SUBCUT SCH ×4 (06:07→18:13)
[2018-09-20] MEDS: BLOOD SUGAR DIAGNOSTIC STRIP TEST SCH ×4 (06:08→18:12)
[2018-09-20 06:57] LABS: PHOSPHORUS 5.5 mg/dL (2.5-4.9)
[2018-09-20 07:42] LABS: BG BASE EXCESS -1.8 mmol/L (-2.0-2.0); BG CARBOXYHEMOGLOBIN 1.8 % (0.5-1.5); BG FRACTION INSPIRED OXYGEN 40; BG HCO3 ACT 20.2 mmol/L (22.0-26.0); BG METHEMOGLOBIN 0.3 % (0.0-1.5); BG OXYGEN SATURATION 95.9 % (92.0-98.5); BG OXYHEMOGLOBIN 93.9 % (94.0-97.0); BG PCO2 26.7 mmHg (35.0-45.0); BG PH 7.497 (7.350-7.450); BG PO2 88.2 mmHg (75.0-100.0); BG SAMPLE SITE RIGHT RADIAL; BG TIDAL VOLUME(mL) 450 mL; BG TOTAL HEMOGLOBIN 12.3 g/dL (12.0-18.0); BG VENT MODE VENT - A/C; BG VENT RATE 10 set
[2018-09-20] MEDS: CARVEDILOL 3.125 MG TABLET PO SCH (09:00)
[2018-09-20] MEDS: LEVETIRACETAM 500 MG in SODIUM CHLORIDE 0.9% 100 ML IV SCH ×2 (10:00→21:11)
[2018-09-20] MEDS: AMLODIPINE 5MG TABLET PO SCH (10:00)
[2018-09-20] MEDS: PANTOPRAZOLE SODIUM 40 MG/VIAL IV SCH (10:00)
[2018-09-20] MEDS ORDERED: HYDRALAZINE 20MG/ML VIAL IV PRN (13:00)
[2018-09-20] MEDS: HYDRALAZINE HCL 50MG TABLET PO SCH ×2 (14:00→21:12)
[2018-09-20] MEDS: PIPERACILLIN/TAZ 2.25G PREMIX 50 ML IV SCH (18:12)
[2018-09-21] VITALS (46 sets, daily range): BP systolic 122–161; BP diastolic 37–131
[2018-09-21] MEDS: BLOOD SUGAR DIAGNOSTIC STRIP TEST SCH ×4 (00:10→19:00)
[2018-09-21] MEDS: INSULIN LISPRO 100 UNITS/ML SUBCUT SCH ×4 (00:11→19:00)
[2018-09-21] MEDS: NICARDIPINE 100 MG in SODIUM CHLORIDE 0.9% 60 ML IV PRN (00:11)
[2018-09-21] MEDS: PIPERACILLIN/TAZ 2.25G PREMIX 50 ML IV SCH ×3 (01:46→19:05)
[2018-09-21 05:57] LABS: BASOPHILS % 0.2 % (0.0-2.0); EOSINOPHILS % 1.2 % (0.0-5.0); HEMATOCRIT. 38.3 % (42.0-52.0); HEMOGLOBIN. 12.6 g/dL (14.0-18.0); LYMPHOCYTES % 8.2 % (20.0-50.0); MEAN CORPUSCULAR HEMOGLOBIN 31.4 pg (28.0-32.0); MEAN CORPUSCULAR VOLUME 95.4 fL (80.0-94.0); MEAN PLATELET VOLUME 7.9 fl (7.4-10.4); MONOCYTES % 6.3 % (2.0-8.0); NEUTROPHILS % 84.1 % (40.0-76.0); PHOSPHORUS 4.6 mg/dL (2.5-4.9); PLATELET 225 x1000/uL (130-400); RED BLOOD CELL COUNT 4.01 mill/uL (4.7-6.1); RED CELL DISTRIBUTION WIDTH 15.2 % (11.6-14.6)
[2018-09-21] MEDS: HYDRALAZINE HCL 50MG TABLET PO SCH (06:24)
[2018-09-21] MEDS: LEVOTHYROXINE SODIUM 50MCG TABLET PO SCH (06:24)
[2018-09-21 08:54] LABS: BG BASE EXCESS 2.7 mmol/L (-2.0-2.0); BG CARBOXYHEMOGLOBIN 0.4 % (0.5-1.5); BG FRACTION INSPIRED OXYGEN 40; BG METHEMOGLOBIN 0.2 % (0.0-1.5); BG OXYHEMOGLOBIN 98.4 % (94.0-97.0); BG PCO2 35.7 mmHg (35.0-45.0); BG PH 7.481 (7.350-7.450); BG PO2 181.7 mmHg (75.0-100.0); BG SAMPLE SITE RIGHT RADIAL; BG TIDAL VOLUME(mL) 450 mL; BG TOTAL HEMOGLOBIN 12.3 g/dL (12.0-18.0); BG VENT MODE VENT - A/C; BG VENT RATE 10 set
[2018-09-21] MEDS: PANTOPRAZOLE SODIUM 40 MG/VIAL IV SCH (08:54)
[2018-09-21] MEDS: AMLODIPINE 5MG TABLET PO SCH (08:54)
[2018-09-21] MEDS: LEVETIRACETAM 500 MG in SODIUM CHLORIDE 0.9% 100 ML IV SCH ×2 (08:54→21:07)
[2018-09-21] MEDS: NITROGLYCERIN OINT 1GM/INCH UDPKT TD SCH ×2 (13:17→21:46)
[2018-09-21] MEDS: HYDRALAZINE HCL 100MG TABLET PO SCH ×2 (13:18→21:08)
[2018-09-21] MEDS ORDERED: VANCOMYCIN 750 MG PREMIX 150 ML IV NR (21:00)
[2018-09-22] VITALS (71 sets, daily range): BP systolic 105–157; BP diastolic 28–74
[2018-09-22] MEDS: BLOOD SUGAR DIAGNOSTIC STRIP TEST SCH ×4 (00:16→18:00)
[2018-09-22] MEDS: INSULIN LISPRO 100 UNITS/ML SUBCUT SCH ×4 (00:29→19:47)
[2018-09-22] MEDS: PIPERACILLIN/TAZ 2.25G PREMIX 50 ML IV SCH ×3 (02:06→19:46)
[2018-09-22 06:24] LABS: BASOPHILS % 0.6 % (0.0-2.0); EOSINOPHILS % 1.8 % (0.0-5.0); HEMATOCRIT. 35.4 % (42.0-52.0); HEMOGLOBIN. 11.7 g/dL (14.0-18.0); LYMPHOCYTES % 7.7 % (20.0-50.0); MEAN CORPUSCULAR HEMOGLOBIN 31.5 pg (28.0-32.0); MEAN CORPUSCULAR VOLUME 95.7 fL (80.0-94.0); MEAN PLATELET VOLUME 8.8 fl (7.4-10.4); MONOCYTES % 6.7 % (2.0-8.0); NEUTROPHILS % 83.2 % (40.0-76.0); PLATELET 225 x1000/uL (130-400); RED CELL DISTRIBUTION WIDTH 15.7 % (11.6-14.6)
[2018-09-22 06:32] LABS: PHOSPHORUS 5.3 mg/dL (2.5-4.9)
[2018-09-22] MEDS: HYDRALAZINE HCL 100MG TABLET PO SCH ×3 (06:47→21:41)
[2018-09-22] MEDS: LEVOTHYROXINE SODIUM 50MCG TABLET PO SCH (06:47)
[2018-09-22] MEDS: NITROGLYCERIN OINT 1GM/INCH UDPKT TD SCH ×3 (06:47→21:40)
[2018-09-22] MEDS: LEVETIRACETAM 500 MG in SODIUM CHLORIDE 0.9% 100 ML IV SCH ×2 (09:42→21:37)
[2018-09-22] MEDS: PANTOPRAZOLE SODIUM 40 MG/VIAL IV SCH (09:42)
[2018-09-22] MEDS: AMLODIPINE 5MG TABLET PO SCH (09:43)
[2018-09-22] MEDS: FOLIC ACID/VITAMIN B COMP W-C TABLET PO SCH (13:25)
[2018-09-23] VITALS (59 sets, daily range): BP systolic 102–175; BP diastolic 32–75
[2018-09-23] MEDS: BLOOD SUGAR DIAGNOSTIC STRIP TEST SCH ×2 (00:51→06:08)
[2018-09-23] MEDS: PIPERACILLIN/TAZ 2.25G PREMIX 50 ML IV SCH ×3 (01:33→17:21)
[2018-09-23] MEDS: NICARDIPINE 100 MG in SODIUM CHLORIDE 0.9% 60 ML IV PRN (04:55)
[2018-09-23 05:52] LABS: INR 1.1; PROTHROMBIN TIME 10.9 sec (9.1-11.1)
[2018-09-23 05:57] LABS: HEMATOCRIT. 34.3 % (42.0-52.0); HEMOGLOBIN. 11.2 g/dL (14.0-18.0); MEAN CORPUSCULAR HEMOGLOBIN 31.2 pg (28.0-32.0); MEAN CORPUSCULAR VOLUME 95.5 fL (80.0-94.0); PLATELET 223 x1000/uL (130-400); RED CELL DISTRIBUTION WIDTH 15.3 % (11.6-14.6)
[2018-09-23] MEDS: INSULIN LISPRO 100 UNITS/ML SUBCUT SCH ×2 (06:00)
[2018-09-23 06:02] LABS: CHLORIDE 99 mEq/L (98-107)
[2018-09-23] MEDS: LEVOTHYROXINE SODIUM 50MCG TABLET PO SCH (06:07)
[2018-09-23] MEDS: NITROGLYCERIN OINT 1GM/INCH UDPKT TD SCH ×3 (06:07→21:15)
[2018-09-23] MEDS: HYDRALAZINE HCL 100MG TABLET PO SCH ×3 (06:07→21:15)
[2018-09-23 07:05] LABS: PLATELET ESTIMATE NORMAL
[2018-09-23] MEDS: LEVETIRACETAM 500 MG in SODIUM CHLORIDE 0.9% 100 ML IV SCH ×2 (08:47→21:15)
[2018-09-23] MEDS: FOLIC ACID/VITAMIN B COMP W-C TABLET PO SCH (08:48)
[2018-09-23] MEDS: PANTOPRAZOLE SODIUM 40 MG/VIAL IV SCH (08:48)
[2018-09-23] MEDS: AMLODIPINE 5MG TABLET PO SCH (08:49)
[2018-09-23] MEDS ORDERED: FENTANYL CITRATE/PF 50MCG/ML 2ML VIAL ONE (12:11)
[2018-09-23] MEDS ORDERED: ROCURONIUM BROMIDE 10MG/ML VIAL 5ML IV ONE (12:11)
[2018-09-23] MEDS ORDERED: PROPOFOL 200MG/20ML VIAL IV ONE (12:11)
[2018-09-23] MEDS ORDERED: CEFAZOLIN SODIUM 1000MG/VIAL ONE ×2 (12:16→15:16)
[2018-09-23] MEDS ORDERED: LIDOCAINE HCL/EPINEPHRINE 1%-EPI 1:100,000 20 ML VIAL ONE (13:44)
[2018-09-23] MEDS: DEXT 5%/0.45% NACL 1000ML 1,000 ML IV SCH ×2 (20:09)
[2018-09-24] VITALS (77 sets, daily range): BP systolic 98–162; BP diastolic 30–74
[2018-09-24] MEDS: PIPERACILLIN/TAZ 2.25G PREMIX 50 ML IV SCH ×3 (01:38→18:04)
[2018-09-24] MEDS: HYDRALAZINE HCL 100MG TABLET PO SCH ×3 (05:23→22:19)
[2018-09-24] MEDS: NITROGLYCERIN OINT 1GM/INCH UDPKT TD SCH ×3 (05:24→22:19)
[2018-09-24] MEDS: LEVOTHYROXINE SODIUM 50MCG TABLET PO SCH (05:24)
[2018-09-24 05:34] LABS: BASOPHILS % 0.4 % (0.0-2.0); EOSINOPHILS % 1.3 % (0.0-5.0); HEMATOCRIT. 38.7 % (42.0-52.0); HEMOGLOBIN. 12.7 g/dL (14.0-18.0); LYMPHOCYTES % 9.4 % (20.0-50.0); MEAN CORPUSCULAR HEMOGLOBIN 31.3 pg (28.0-32.0); MEAN CORPUSCULAR VOLUME 95.5 fL (80.0-94.0); MEAN PLATELET VOLUME 8.6 fl (7.4-10.4); MONOCYTES % 5.1 % (2.0-8.0); NEUTROPHILS % 83.8 % (40.0-76.0); PLATELET 228 x1000/uL (130-400); RED BLOOD CELL COUNT 4.05 mill/uL (4.7-6.1); RED CELL DISTRIBUTION WIDTH 15.3 % (11.6-14.6)
[2018-09-24 05:42] LABS: CHLORIDE 98 mEq/L (98-107)
[2018-09-24 05:55] LABS: PHOSPHORUS 4.7 mg/dL (2.5-4.9)
[2018-09-24] MEDS: PANTOPRAZOLE SODIUM 40 MG/VIAL IV SCH (08:43)
[2018-09-24] MEDS: FOLIC ACID/VITAMIN B COMP W-C TABLET PO SCH (08:44)
[2018-09-24] MEDS: AMLODIPINE 5MG TABLET PO SCH (08:44)
[2018-09-24] MEDS: LEVETIRACETAM 500 MG in SODIUM CHLORIDE 0.9% 100 ML IV SCH ×2 (08:45→21:44)
[2018-09-24] MEDS ORDERED: DIPHENHYDRAMINE 50MG/ML VIAL ONE (09:16)
[2018-09-24] MEDS ORDERED: MIDAZOLAM HCL 5 MG/5 ML VIAL ONE (09:16)
[2018-09-24] MEDS ORDERED: FENTANYL CITRATE/PF 50MCG/ML 2ML VIAL ONE (09:17)
[2018-09-24] MEDS ORDERED: MIDAZOLAM HCL 5 MG/5 ML VIAL IV PRN (10:02)
[2018-09-24] MEDS ORDERED: BACTERIOSTATIC SODIUM CHLORIDE 0.9% 30ML VIAL IJ ONE (15:43)
[2018-09-24] MEDS ORDERED: SIMETHICONE 40 MG/0.6 ML 30ML ONE (15:43)
[2018-09-25] VITALS (48 sets, daily range): BP systolic 112–147; BP diastolic 32–59
[2018-09-25] MEDS: METOCLOPRAMIDE HCL 10MG/2ML VIAL IV SCH ×4 (00:16→18:18)
[2018-09-25] MEDS: DEXT 5%/0.45% NACL 1000ML 1,000 ML IV SCH (00:50)
[2018-09-25] MEDS: PIPERACILLIN/TAZ 2.25G PREMIX 50 ML IV SCH ×2 (02:48→10:58)
[2018-09-25 05:33] LABS: BASOPHILS % 0.5 % (0.0-2.0); EOSINOPHILS % 1.9 % (0.0-5.0); HEMATOCRIT. 36.6 % (42.0-52.0); LYMPHOCYTES % 8.3 % (20.0-50.0); MEAN CORPUSCULAR VOLUME 94.3 fL (80.0-94.0); MEAN PLATELET VOLUME 8.8 fl (7.4-10.4); MONOCYTES % 4.5 % (2.0-8.0); NEUTROPHILS % 84.8 % (40.0-76.0); PLATELET 196 x1000/uL (130-400); RED BLOOD CELL COUNT 3.88 mill/uL (4.7-6.1); RED CELL DISTRIBUTION WIDTH 15.7 % (11.6-14.6)
[2018-09-25 05:37] LABS: CHLORIDE 96 mEq/L (98-107)
[2018-09-25 05:44] LABS: PHOSPHORUS 4.4 mg/dL (2.5-4.9)
[2018-09-25] MEDS: HYDRALAZINE HCL 100MG TABLET PO SCH ×3 (06:23→22:19)
[2018-09-25] MEDS: LEVOTHYROXINE SODIUM 50MCG TABLET PO SCH (06:24)
[2018-09-25] MEDS: NITROGLYCERIN OINT 1GM/INCH UDPKT TD SCH ×3 (06:24→22:19)
[2018-09-25] MEDS: PANTOPRAZOLE SODIUM 40 MG/VIAL IV SCH (08:55)
[2018-09-25] MEDS: LEVETIRACETAM 500 MG in SODIUM CHLORIDE 0.9% 100 ML IV SCH ×2 (08:55→22:20)
[2018-09-25] MEDS: AMLODIPINE 10MG TABLET PO SCH (08:56)
[2018-09-25] MEDS: FOLIC ACID/VITAMIN B COMP W-C TABLET PO SCH (08:56)
[2018-09-25] MEDS ORDERED: FAMOTIDINE 20MG TABLET GT SCH (21:00)
[2018-09-26] VITALS (30 sets, daily range): BP systolic 118–144; BP diastolic 34–77
[2018-09-26] MEDS: METOCLOPRAMIDE HCL 10MG/2ML VIAL IV SCH ×4 (01:22→18:19)
[2018-09-26 05:32] LABS: HEMATOCRIT 34.8 % (42.0-52.0); HEMOGLOBIN 11.5 g/dL (14.0-18.0); MEAN CORPUSCULAR HEMOGLOBIN 31.3 pg (28.0-32.0); MEAN CORPUSCULAR VOLUME 94.3 fL (80.0-94.0); PLATELET 210 x1000/uL (130-400); RED BLOOD CELL COUNT 3.69 mill/uL (4.7-6.1); RED CELL DISTRIBUTION WIDTH 15.6 % (11.6-14.6)
[2018-09-26] MEDS: LEVOTHYROXINE SODIUM 50MCG TABLET PO SCH (06:24)
[2018-09-26] MEDS: HYDRALAZINE HCL 100MG TABLET PO SCH ×2 (06:25→14:26)
[2018-09-26] MEDS: NITROGLYCERIN OINT 1GM/INCH UDPKT TD SCH ×2 (06:25→14:27)
[2018-09-26] MEDS: FOLIC ACID/VITAMIN B COMP W-C TABLET PO SCH (09:00)
[2018-09-26] MEDS: AMLODIPINE 10MG TABLET PO SCH (09:00)
[2018-09-26] MEDS: LEVETIRACETAM 500 MG in SODIUM CHLORIDE 0.9% 100 ML IV SCH (09:00)
== END 2018-09-26 21:30 | DRG 3 ==
LOC: ER 06:53 → EDBEDREQSVC 08:26 → MICUSO 08:34 → EDBEDREQ 08:37 → EDBEDREQTM 08:37 → ENRESERV 08:48 → 5EST 09-26 11:00
PROVIDERS: ADMIT Internal Medicine; ATTEND Internal Medicine
PROC: 00C40ZZ Extirpation of Matter from Intracranial Subdural Space, Open Approach (ICD-10-PCS; 2018-09-15)
PROC: 5A1955Z Respiratory Ventilation, Greater than 96 Consecutive Hours (ICD-10-PCS; 2018-09-15)
PROC: 009430Z Drainage of Intracranial Subdural Space with Drainage Device, Percutaneous Approach (ICD-10-PCS; 2018-09-15)
PROC: 00U207Z Supplement Dura Mater with Autologous Tissue Substitute, Open Approach (ICD-10-PCS; 2018-09-15)
PROC: 0BH17EZ Insertion of Endotracheal Airway into Trachea, Via Natural or Artificial Opening (ICD-10-PCS; 2018-09-15)
PROC: 02H633Z Insertion of Infusion Device into Right Atrium, Percutaneous Approach (ICD-10-PCS; 2018-09-16)
PROC: B244ZZZ Ultrasonography of Right Heart (ICD-10-PCS; 2018-09-16)
PROC: 0B110F4 Bypass Trachea to Cutaneous with Tracheostomy Device, Open Approach (ICD-10-PCS; principal; 2018-09-23)
PROC: 0DH63UZ Insertion of Feeding Device into Stomach, Percutaneous Approach (ICD-10-PCS; 2018-09-24)
PROC: 5A1D70Z Performance of Urinary Filtration, Intermittent, Less than 6 Hours Per Day (ICD-10-PCS; 2018-09-26)
DX: I62.01 Nontraumatic acute subdural hemorrhage (principal); N18.6 End stage renal disease; I50.33 Acute on chronic diastolic (congestive) heart failure; J96.00 Acute respiratory failure, unspecified whether with hypoxia or hypercapnia; E87.2 Acidosis; E87.1 Hypo-osmolality and hyponatremia; I13.2 Hypertensive heart and chronic kidney disease with heart failure and with stage 5 chronic kidney disease, or end stage renal disease; Z99.11 Dependence on respirator [ventilator] status; G81.91 Hemiplegia, unspecified affecting right dominant side; G93.49 Other encephalopathy; Z96.649 Presence of unspecified artificial hip joint; D72.829 Elevated white blood cell count, unspecified; R00.1 Bradycardia, unspecified; R74.0 Nonspecific elevation of levels of transaminase and lactic acid dehydrogenase [LDH]; R13.10 Dysphagia, unspecified; E11.22 Type 2 diabetes mellitus with diabetic chronic kidney disease; E03.9 Hypothyroidism, unspecified; E11.65 Type 2 diabetes mellitus with hyperglycemia; E83.39 Other disorders of phosphorus metabolism; H54.7 Unspecified visual loss; Z82.49 Family history of ischemic heart disease and other diseases of the circulatory system; Z83.3 Family history of diabetes mellitus; Z86.711 Personal history of pulmonary embolism; Z99.2 Dependence on renal dialysis; Z86.718 Personal history of other venous thrombosis and embolism; Z86.73 Personal history of transient ischemic attack (TIA), and cerebral infarction without residual deficits; Z78.1 Physical restraint status
CPT/HCPCS: 36415; 36569; 36600; 71045; 76700; 76937; 80048; 80061; 80076; 80202; 80305; 82375; 82805; 82962; 83036; 83605; 83735; 84100; 84145; 84439; 84443; 84478; 84481; 84484; 85027; 86850; 86900; 86920; 87804; 88305; 93005; 93970; 94002; 94003; 96374; 99285; A6261; C1713; C1725; C9113; J0330; J0690; J1200; J1815; J1953; J2250; J2543; J2704; J2765; J3010; J3370; J3490; J7030; J7040; J7050; J7121